=== PATIENT | female | born 1960 | race Caucasian/White ===

== ENCOUNTER → 2017-04-13 | Outpatient (CLI) | payer MEDICARE | END | disposition home or self-care (01) | LOC: CFH 10:14 | PROVIDERS: ATTEND Family Medicine Adult Medicine | DX: Z12.31 Encounter for screening mammogram for malignant neoplasm of breast (principal) | CPT/HCPCS: G0202 ==

== ENCOUNTER 2019-04-17 20:05 | Emergency (ER) | payer MEDICARE ==
[~2019-04-17] VITALS: Ht 162.6 cm; Wt 53.2 kg
[2019-04-17 20:07] VITALS: BP 155/72
== END 2019-04-17 21:26 | disposition home or self-care (01) ==
LOC: ED 21:10
DX: B02.29 Other postherpetic nervous system involvement (principal)
CPT/HCPCS: 99283